=== PATIENT | male | born 1950 | race Caucasian/White ===

== ENCOUNTER 2023-03-31 10:00 | Inpatient (IN) | payer MEDICARE, MEDICAID ==
[~2023-03-31] VITALS: Ht 190.5 cm; Wt 100.2 kg
[~2023-03-31 10:00] MED LIST: ASPI-920 PO; ATOR40TA PO; LEVO750T68 PO; METO50TA17 PO; METR-159 PO; NICO-731 TOP
[2023-03-31 11:21] LABS: EOSINOPHILS # (AUTO) 0.1 X10'3 (0-0.9); MONOCYTES # (AUTO) 0.5 X10'3 (0-0.9); RED CELL DISTRIBUTION WIDTH 15.7 % (11.5-14.5)
[2023-03-31 11:23] LABS: BASOPHILS # (AUTO) 0.1 X10'3 (0-0.2); BASOPHILS % (AUTO) 1.4 % (0-1); EOSINOPHILS % (AUTO) 1.2 % (0-6); HEMATOCRIT 50.9 % (42.0-52.0); HEMOGLOBIN 17.1 g/dl (14.0-17.9); LYMPHOCYTES # (AUTO) 1.5 X10'3 (1.1-4.8); LYMPHOCYTES % (AUTO) 19.6 % (21-51); MEAN CORPUSCULAR HEMOGLOBIN 30.7 PG (27.0-31.0); MEAN CORPUSCULAR HGB CONC 33.6 g/dL (33.0-36.5); MEAN CORPUSCULAR VOLUME 91.5 FL (78-98); MEAN PLATELET VOLUME 9.4 FL (7.4-10.4); MONOCYTES % (AUTO) 6.9 % (2-12); NEUTROPHILS # (AUTO) 5.4 X10'3 (1.8-7.7); NEUTROPHILS % (AUTO) 70.9 % (42-75); PLATELET COUNT 154 X10'3 (140-440); RED BLOOD COUNT 5.56 X10'6 (4.70-6.10); WHITE BLOOD COUNT 7.7 X10'3 (4.5-11.0)
[2023-03-31 11:25] LABS: ALANINE AMINOTRANSFERASE 14 U/L (12-78); ALBUMIN 3.2 G/DL (3.4-5.0); ALBUMIN/GLOBULIN RATIO 0.9 (1.1-1.5); ALKALINE PHOSPHATASE 109 IU/L (46-116); ANION GAP 11 (8-16); ASPARTATE AMINO TRANSFERASE 16 U/L (10-37); BLOOD UREA NITROGEN 16 MG/DL (7-18); CALCIUM 8.9 MG/DL (8.5-10.1); CHLORIDE 103 MMOL/L (99-107); CREATININE 0.94 MG/DL (0.60-1.10); GLUCOSE 139 MG/DL (70-104); POTASSIUM 3.6 MMOL/L (3.5-5.1); SODIUM 138 MMOL/L (135-145); TOTAL CARBON DIOXIDE 24.4 MMOL/L (24-32); TOTAL PROTEIN 6.6 G/DL (6.4-8.2); eCRCL 82 ML/MIN; eGFR 78 ML/MIN
[2023-03-31] MEDS ORDERED: potassium Cl 20 mEq SR tablet PO STA (11:31)
[2023-03-31 11:32] LABS: PRO BRAIN NATRIURETIC PEPTIDE 387 PG/ML (0-125)
[2023-03-31] MEDS ORDERED: metoprolol tartrate 50mg tablet PO ONE (11:55)
--- NOTE | 2023-03-31 13:10 | NUR ---
PT TROP 114 PER SHADOW RN. SHADOW WILL NOTIFY DR CORDOVA.
[2023-03-31] MEDS ORDERED: metoprolol tartrate 1mg/ml inj IV ONE (13:55)
[2023-03-31] MEDS ORDERED: aspirin 81mg tab.chew PO ONE (14:00)
[2023-03-31] MEDS ORDERED: enoxaparin 100mg/ml syringe SUBCUT ONE (14:05)
[2023-03-31] MEDS ORDERED: heparin 10,000 units/1 ML INJ IV ONE (15:05)
--- NOTE | 2023-03-31 15:05 | NUR ---
DR MONTEIRO AT BEDSIDE. PER DR MONTEIRO RN MAY ORD AND ADMIN HEPARIN DRIP PER PROTOCOL.
[2023-03-31] MEDS ORDERED: magnesium hydroxide 30ml (MOM) UD suspension PO PRN (15:15)
[2023-03-31] MEDS ORDERED: potassium Cl 20 mEq SR tablet PO PRN ×2 (15:15)
[2023-03-31] MEDS ORDERED: potassium Cl 40MEQ/1/2NS 520ml 520 ML IV PRN (15:15)
[2023-03-31] MEDS ORDERED: magnesium 4gm in 100ml NS 100 ML IV PRN (15:15)
[2023-03-31] MEDS ORDERED: ondansetron/PF 4mg/2ml inj IV PRN (15:15)
[2023-03-31] MEDS ORDERED: mag hydrox/Alum hydrox/simeth 30ml oral suspension PO PRN (15:15)
[2023-03-31] MEDS ORDERED: acetaminophen 325mg tablet PO PRN ×2 (15:15)
[2023-03-31] MEDS ORDERED: morphine 2 MG/ML inj. syringe IV PRN (15:15)
[2023-03-31] MEDS ORDERED: magnesium Cl slow-release 64mg tablet PO PRN (15:15)
[2023-03-31] MEDS ORDERED: HYDROcodone/acetaminophen 10/325mg tab PO PRN (15:15)
[2023-03-31] MEDS ORDERED: magnesium 2GM in 50ml NS 50 ML IV PRN (15:15)
[2023-03-31] MEDS ORDERED: heparin 10,000 units/1 ML INJ IV PRN (15:41)
[2023-03-31 15:45] LABS: BASOPHILS # (AUTO) 0.1 X10'3 (0-0.2); EOSINOPHILS # (AUTO) 0.1 X10'3 (0-0.9); EOSINOPHILS % (AUTO) 1.6 % (0-6); HEMATOCRIT 52.2 % (42.0-52.0); HEMOGLOBIN 17.4 g/dl (14.0-17.9); LYMPHOCYTES # (AUTO) 1.8 X10'3 (1.1-4.8); LYMPHOCYTES % (AUTO) 28.4 % (21-51); MEAN CORPUSCULAR HEMOGLOBIN 30.5 PG (27.0-31.0); MEAN CORPUSCULAR HGB CONC 33.4 g/dL (33.0-36.5); MEAN CORPUSCULAR VOLUME 91.5 FL (78-98); MEAN PLATELET VOLUME 9.4 FL (7.4-10.4); MONOCYTES # (AUTO) 0.5 X10'3 (0-0.9); MONOCYTES % (AUTO) 7.8 % (2-12); NEUTROPHILS % (AUTO) 61.2 % (42-75); PLATELET COUNT 164 X10'3 (140-440); RED CELL DISTRIBUTION WIDTH 15.7 % (11.5-14.5); WHITE BLOOD COUNT 6.5 X10'3 (4.5-11.0)
[2023-03-31 15:57] LABS: APTT 30 SECONDS (22-32); INR 1.1 INR
[2023-03-31 16:32] LABS: BILIRUBIN,URINE SMALL (Neg); CLARITY,URINE SLIGHTLY CLOUDY (Clear); COLOR,URINE YELLOW (Yellow); GLUCOSE, URINE NEGATIVE (Neg); KETONES,URINE 40 mg/dl (Neg); LEUKOCYTE ESTERASE ,URINE NEGATIVE (Neg); NITRITES, URINE NEGATIVE (Neg); OCCULT BLOOD,URINE NEGATIVE (Neg); PROTEIN,URINE 100 mg/dl (Neg)
[2023-03-31 16:37] LABS: UA COLLECTION TYPE CLN CATCH MIDSTREAM
[2023-03-31 16:38] LABS: BACTERIA,URINE NONE SEEN /HPF (Neg); HYALINE CASTS 0-3 /LPF (NEGATIVE); MUCUS STRANDS FEW /LPF (Neg); RBC,URINE 0-2 /HPF (0-2); SQUAMOUS EPITHELIAL CELL,UR NONE SEEN /LPF (FEW); WBC,URINE 0-4 /HPF (0-4)
[2023-03-31] MEDS: heparin 25,000 UNIT/250ml bag 250 ML IV PRN (16:40)
--- NOTE | 2023-03-31 16:43 | NUR ---
PER DR MONTEIRO ORD STAT EKG AT THIS TIME. EKG ORD AND BEING PERFORMED AT BEDSIDE NOW.
--- NOTE | 2023-03-31 16:47 | NUR ---
PTT ORD TO BE COLLECTED AT 2240, 6 HRS POST START OF HEPARIN DRIP.
--- NOTE | 2023-03-31 17:10 | NUR ---
RN NOTIFIED DR REYES THAT REPEAT EKG WAS DONE AND SHE WILL SEND RESIDENT TO COME SEE IT.
--- NOTE | 2023-03-31 17:33 | NUR ---
PT STATES THAT HE TAKES A BLOOD THINNER SOMETIMES BUT CANNOT REMEMBER THE NAME AND USES [facility]. [facility] IS CLOSED SUNDAYS. RN SPOKE WITH DR MONTEIRO AND NOTIFIED HER THAT PT CAN NOT REMEMBER AND COPY OF REPEAT EKG WILL BE IN PT RM.
--- NOTE | 2023-03-31 19:05 | NUR ---
PER ALOK COLEMANN PT TROP 157. THIS RN PAGED DR DON- ED 1-TROP INCREASED TO 157 UP FROM 134
--- NOTE | 2023-03-31 19:32 | NUR ---
[facility] REPORT CALLED. KIMBERLEY CONDE NOTIFIED AND WILL HAVE PT TRANSFERRED TO THE FLOOR.
[2023-03-31] MEDS: K and/or MAG REPLACEMENT MC SCH (20:00)
[2023-03-31 20:07] VITALS: BP 101/68; PULSE 107; RESP 15; TEMP 96.9; O2SAT 97
[2023-03-31] MEDS: docusate sod 100mg capsule PO SCH (20:23)
[2023-03-31] MEDS: atorvastatin 20mg tablet PO SCH (20:23)
[2023-03-31] MEDS: metoprolol tartrate 50mg tablet PO SCH (20:24)
[2023-03-31 22:00] VITALS: BP 93/64; PULSE 105; RESP 14; TEMP 97.8; O2SAT 96
[2023-03-31 23:52] LABS: APTT 40 SECONDS (22-32)
[2023-04-01] VITALS (7 sets, daily range): BP systolic 112–145; BP diastolic 76–96; PULSE 102–107; RESP 14–22; TEMP 97.3–98.6; O2SAT 91–98
--- NOTE | 2023-04-01 06:45 | NUR ---
Skin assessment was not done cos pt refused.Said He wants to sleep.
--- NOTE | 2023-04-01 06:47 | NUR ---
Problems reprioritized. Patient report given, questions answered & plan of care reviewed with Caty
[2023-04-01 07:44] LABS: BASOPHILS # (AUTO) 0.1 X10'3 (0-0.2); BASOPHILS % (AUTO) 1.2 % (0-1); EOSINOPHILS # (AUTO) 0.2 X10'3 (0-0.9); EOSINOPHILS % (AUTO) 2.5 % (0-6); HEMATOCRIT 49.8 % (42.0-52.0); HEMOGLOBIN 16.7 g/dl (14.0-17.9); LYMPHOCYTES # (AUTO) 2.3 X10'3 (1.1-4.8); LYMPHOCYTES % (AUTO) 35.3 % (21-51); MEAN CORPUSCULAR HEMOGLOBIN 30.7 PG (27.0-31.0); MEAN CORPUSCULAR HGB CONC 33.4 g/dL (33.0-36.5); MEAN CORPUSCULAR VOLUME 91.8 FL (78-98); MEAN PLATELET VOLUME 10.1 FL (7.4-10.4); MONOCYTES # (AUTO) 0.6 X10'3 (0-0.9); MONOCYTES % (AUTO) 8.4 % (2-12); NEUTROPHILS # (AUTO) 3.5 X10'3 (1.8-7.7); NEUTROPHILS % (AUTO) 52.6 % (42-75); PLATELET COUNT 143 X10'3 (140-440); RED BLOOD COUNT 5.42 X10'6 (4.70-6.10); RED CELL DISTRIBUTION WIDTH 15.5 % (11.5-14.5); WHITE BLOOD COUNT 6.7 X10'3 (4.5-11.0)
[2023-04-01] MEDS: docusate sod 100mg capsule PO SCH ×2 (07:57→20:00)
[2023-04-01] MEDS: K and/or MAG REPLACEMENT MC SCH ×2 (07:57→20:00)
[2023-04-01] MEDS: metoprolol tartrate 50mg tablet PO SCH ×2 (07:57→20:16)
[2023-04-01] MEDS ORDERED: aspirin 81mg, enteric-coated 1 TAB TABLET.DR PO SCH (08:00)
[2023-04-01 08:08] LABS: ALBUMIN 3.1 G/DL (3.4-5.0); ANION GAP 7 (8-16); BLOOD UREA NITROGEN 18 MG/DL (7-18); BUN/CREATININE RATIO 21.2 (10.0-20.0); CALCIUM 9.3 MG/DL (8.5-10.1); CHLORIDE 103 MMOL/L (99-107); CHOL/HDL RATIO 4.9 (0.00-4.99); CHOLESTEROL 163 MG/DL (0-200); CREATININE 0.85 MG/DL (0.60-1.10); GLUCOSE 123 MG/DL (70-104); HDL CHOLESTEROL 33 MG/DL (35-60); LDL CHOLESTEROL 116 MG/DL (50-100); MAGNESIUM 1.9 MG/DL (1.5-2.4); PHOSPHORUS 3.6 MG/DL (2.3-4.5); POTASSIUM 4.4 MMOL/L (3.5-5.1); SODIUM 137 MMOL/L (135-145); TOTAL CARBON DIOXIDE 27.3 MMOL/L (24-32); TRIGLYCERIDES 69 MG/DL (20-135); eCRCL 91 ML/MIN; eGFR 88 ML/MIN
--- NOTE | 2023-04-01 08:39 | NUR ---
Critical value trop called to Resident.
--- NOTE | 2023-04-01 09:02 | NUR ---
resident rounded on pt.
[2023-04-01 09:15] LABS: INR 1.1 INR; PROTHROMBIN TIME 11.9 SECONDS (9.0-12.0)
--- NOTE | 2023-04-01 09:30 | NUR ---
The following was taken from the patients H&P: This 73 yr. old male came to the ER with concerns of sudden on-set rapid HR. He has a medical history of cardiovascular issues, right foot cellulitis and DM. he is a daily tobacco user. He occasionally uses alcohol and consistently uses marijuana. He lives at home with roommates. CXR was positive for mild cardiomegaly. His most recent labs show a WBC of 6.7, HGB 16.7, BUN 18, BG 110 and an albumin of 3.1. He was admitted for medical management of non-STEMI per progress notes. Wound care in for evaluation of skin breakdown to his extremities per nursing consult request. The pt. was found sitting on the side of the bed in no apparent acute distress. Greeted and explained the intent. He appears to be A/O x4, agreeable to care. The pt. presents with scattered scabbing and scarring to all of his extremities. He says that he has been dealing with itching for years and typically uses triple ABX ointment on each individual wound as it occurs from his scratching. Of note there are no wounds or scars to his back, buttock or posterior upper thighs. He says that is because he believes his itching is part of mental illness and he cant see or reach those areas. He was offered a cream for which he accepted. His feet are very dry with brittle and discolored nails as seen with fungal infection. The remainder of his skin assessment was unremarkable. He was left as he was found on the edge of his bed. The pt. got up and walked through the unit after this nurse left the room. [facility] will not follow this patient as he has no open wounds and has displayed good mobility. Report was given to the primary nurse. 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 Gideon Garcia RN, WOC.
--- NOTE | 2023-04-01 10:15 | NUR ---
RESIDENT MADE AWARE OF A1C AND SKIN SCABS WHILE ROUNDING- SEE NEW ORDERS PLEASE. RESIDENT CALLED NOW ABOUT PATIENTS LEFT EYE- SCLERA PINK. PT STATES HE "CUT HIS EYE" ON SOMETHING "AWHILE AGO".
[2023-04-01] MEDS ORDERED: glucagon, human recombinant 1mg kit SUBCUT PRN (10:40)
[2023-04-01] MEDS ORDERED: DEXTROSE 15 GM of carb/4 tabs (each vial/BOTTLE has 4 tablets) PO PRN ×2 (10:40)
[2023-04-01] MEDS ORDERED: dextrose 50%-water 50ml dispensing syringe IV PRN ×2 (10:40)
[2023-04-01] MEDS ORDERED: insulin Lispro (HumaLOG) vial - multi-dose SQ SCH (10:40)
[2023-04-01] MEDS ORDERED: MESSAGE TO PHARMACY PO ONE (10:40)
--- NOTE | 2023-04-01 12:36 | NUR ---
DM Consult: Pt admit DX NSTEMI, HTN, and new onset DM A1C 7.4% hx pre-diabetes last A1C 5.3% 10/06/22 per EMR. Pt PO 100% first heart healthy meal this AM and Glu 110-141mg/dl following without receiving Glu coverage. Given stature carb restriction not indicated since would not meet needs. Pt seen by RD at bedside for written/verbal DM diet ed w/ RD contact information provided. RD encouraged pt to contact dietitian's office if nutrition questions/concerns. LBM 03/31 refused routine colace this AM per EMR. Will monitor for further PO trends and nutrition intervention needs this admit. Rec: 1. continue heart healthy diet per MD; carb restriction NOT warranted given pt stature and estimated needs 2. monitor PO trends; consider additional proteins w/ meals for satiety if current PO persists to better meet estimated needs 3. routine bowel care 4. weekly wt Addendum: 04/01/23 at [address] Amended: Links added.
--- NOTE | 2023-04-01 12:40 | NUR ---
DNR band placed on pt.
[2023-04-01] MEDS ORDERED: PERFLUTREN PROTEIN-A MICROSPHR (Optison) 0.22 MG/ML 3ML VIAL IV ONE (13:05)
[2023-04-01] MEDS ORDERED: aminophylline 250mg/10ml inj. IV PRN (13:05)
[2023-04-01] MEDS ORDERED: nitroGLYCERIN 0.4mg SUBLingual tab SL PRN (13:05)
[2023-04-01] MEDS ORDERED: regadenoson 0.4mg/5ml syringe IV PRN (13:05)
[2023-04-01] MEDS ORDERED: metoprolol tartrate 1mg/ml inj IV PRN (13:05)
--- NOTE | 2023-04-01 13:39 | NUR ---
DM Consult: Addressed; see prior RD note. Addendum: 04/01/23 at [address] Amended: Links added.
[2023-04-01] MEDS: heparin 25,000 UNIT/250ml bag 250 ML IV PRN (14:49)
[2023-04-01 16:26] LABS: URINE AMPHETAMINE SCREEN NEGATIVE (Neg); URINE BARBITUATE SCREEN NEGATIVE (Neg); URINE BENZODIAZEPINES SCREEN NEGATIVE (Neg); URINE CANNABINOID SCREEN POSITIVE (Neg); URINE COCAINE SCREEN NEGATIVE (Neg); URINE METHADONE SCREEN NEGATIVE (Neg); URINE OPIATE SCREEN NEGATIVE (Neg); URINE PHENCYCLIDINE SCREEN NEGATIVE (Neg)
--- NOTE | 2023-04-01 18:43 | NUR ---
Gave report to Yoselin CONDE.
[2023-04-01] MEDS: mupirocin 2% ointment 22GM TP SCH ×2 (20:00→20:17)
[2023-04-01] MEDS: atorvastatin 20mg tablet PO SCH (20:15)
[2023-04-01] MEDS ORDERED: insulin glargine (Lantus) pen - multi-dose SQ SCH (21:00)
[2023-04-02 01:14] VITALS: BP 140/90; PULSE 105; RESP 18; TEMP 97.4; O2SAT 97
[2023-04-02 06:00] VITALS: BP 123/98; PULSE 79; RESP 17; TEMP 98.3; O2SAT 97
--- NOTE | 2023-04-02 06:51 | NUR ---
Problems reprioritized. Patient report given, questions answered & plan of care reviewed with AMAYA Phoenix. Pt stable at shift change.
[2023-04-02 07:25] LABS: BASOPHILS # (AUTO) 0.1 X10'3 (0-0.2); EOSINOPHILS # (AUTO) 0.2 X10'3 (0-0.9); EOSINOPHILS % (AUTO) 2.3 % (0-6); HEMATOCRIT 51.5 % (42.0-52.0); LYMPHOCYTES % (AUTO) 29.7 % (21-51); MEAN CORPUSCULAR HEMOGLOBIN 30.3 PG (27.0-31.0); MEAN CORPUSCULAR VOLUME 91.8 FL (78-98); MEAN PLATELET VOLUME 9.7 FL (7.4-10.4); MONOCYTES # (AUTO) 0.5 X10'3 (0-0.9); MONOCYTES % (AUTO) 7.6 % (2-12); NEUTROPHILS % (AUTO) 59.4 % (42-75); PLATELET COUNT 160 X10'3 (140-440); RED BLOOD COUNT 5.61 X10'6 (4.70-6.10); RED CELL DISTRIBUTION WIDTH 15.5 % (11.5-14.5); WHITE BLOOD COUNT 6.7 X10'3 (4.5-11.0)
[2023-04-02 07:39] LABS: APTT 29 SECONDS (22-32); INR 1.1 INR; PROTHROMBIN TIME 11.3 SECONDS (9.0-12.0)
[2023-04-02 07:42] LABS: ALBUMIN 3.4 G/DL (3.4-5.0); ANION GAP 1 (8-16); BLOOD UREA NITROGEN 15 MG/DL (7-18); CALCIUM 9.2 MG/DL (8.5-10.1); CHLORIDE 103 MMOL/L (99-107); CREATININE 0.88 MG/DL (0.60-1.10); GLUCOSE 135 MG/DL (70-104); MAGNESIUM 1.9 MG/DL (1.5-2.4); PHOSPHORUS 4.1 MG/DL (2.3-4.5); SODIUM 130 MMOL/L (135-145); TOTAL CARBON DIOXIDE 25.6 MMOL/L (24-32); eCRCL 88 ML/MIN; eGFR 85 ML/MIN
[2023-04-02 08:00] VITALS: RESP 17; O2SAT 96
--- NOTE | 2023-04-02 10:30 | NUR ---
Patient left AMA. MD aware. risks given and explained to patient. patient very upset and unable to deescalate the situation when even told he would be discharged in just a couple minutes.
== END 2023-04-02 09:45 | disposition left against medical advice (07) | DRG 281 ==
LOC: ER 10:01 → ED HOLD 15:18 → PCU 3S 19:50
PROVIDERS: ADMIT Internal Medicine; ATTEND Internal Medicine
DX: I48.92 Unspecified atrial flutter (principal); I21.A1 Myocardial infarction type 2; E87.1 Hypo-osmolality and hyponatremia; E11.9 Type 2 diabetes mellitus without complications; E78.5 Hyperlipidemia, unspecified; I48.0 Paroxysmal atrial fibrillation; Z87.891 Personal history of nicotine dependence; Z79.899 Other long term (current) drug therapy
CPT/HCPCS: 36415; 71045; 80048; 80053; 80061; 80305; 81001; 82948; 83036; 83735; 83880; 84100; 84484; 85025; 85610; 85730; 87081; 93306; 99285; A6250; G0378; J1644; J1650; J1815; J3490

== ENCOUNTER 2023-06-23 14:46 | Emergency (ER) | payer MEDICARE, MEDICAID ==
[~2023-06-23] VITALS: Ht 190.5 cm; Wt 100.0 kg
[~2023-06-23 14:46] MED LIST changes: -LEVO750T68 PO; -METR-159 PO; -NICO-731 TOP
[2023-06-23 15:44] VITALS: BP 133/92; PULSE 133; TEMP 98.3; O2SAT 96
[2023-06-23 16:34] LABS: BILIRUBIN,URINE SMALL (Neg); CLARITY,URINE SLIGHTLY CLOUDY (Clear); COLOR,URINE YELLOW (Yellow); GLUCOSE, URINE NEGATIVE (Neg); KETONES,URINE 15 mg/dl (Neg); LEUKOCYTE ESTERASE ,URINE NEGATIVE (Neg); NITRITES, URINE NEGATIVE (Neg); OCCULT BLOOD,URINE TRACE-INTACT (Neg); PH,URINE 6.5 (4.8-8.0); PROTEIN,URINE 100 mg/dl (Neg)
[2023-06-23 16:38] LABS: UA COLLECTION TYPE CLN CATCH MIDSTREAM
[2023-06-23 16:39] LABS: ALANINE AMINOTRANSFERASE 20 U/L (12-78); ALBUMIN 3.2 G/DL (3.4-5.0); ALBUMIN/GLOBULIN RATIO 0.7 (1.1-1.5); ALKALINE PHOSPHATASE 108 IU/L (46-116); ANION GAP 5 (8-16); ASPARTATE AMINO TRANSFERASE 20 U/L (10-37); BILIRUBIN,TOTAL 1.3 MG/DL (0.1-1.0); BLOOD UREA NITROGEN 13 MG/DL (7-18); BUN/CREATININE RATIO 15.7 (10.0-20.0); CALCIUM 9.4 MG/DL (8.5-10.1); CHLORIDE 101 MMOL/L (99-107); CREATININE 0.83 MG/DL (0.60-1.10); GLUCOSE 125 MG/DL (70-104); POTASSIUM 3.5 MMOL/L (3.5-5.1); SODIUM 138 MMOL/L (135-145); TOTAL CARBON DIOXIDE 32.3 MMOL/L (24-32); TOTAL PROTEIN 7.6 G/DL (6.4-8.2); eCRCL 93 ML/MIN; eGFR > 90 ML/MIN
[2023-06-23 16:40] LABS: BASOPHILS # (AUTO) 0.1 X10'3 (0-0.2); BASOPHILS % (AUTO) 0.6 % (0-1); EOSINOPHILS # (AUTO) 0.1 X10'3 (0-0.9); HEMATOCRIT 46.3 % (42.0-52.0); HEMOGLOBIN 15.5 g/dl (14.0-17.9); LYMPHOCYTES # (AUTO) 1.6 X10'3 (1.1-4.8); LYMPHOCYTES % (AUTO) 16.8 % (21-51); MEAN CORPUSCULAR HEMOGLOBIN 30.6 PG (27.0-31.0); MEAN CORPUSCULAR HGB CONC 33.5 g/dL (33.0-36.5); MEAN CORPUSCULAR VOLUME 91.3 FL (78-98); MEAN PLATELET VOLUME 9.2 FL (7.4-10.4); MONOCYTES # (AUTO) 0.8 X10'3 (0-0.9); MONOCYTES % (AUTO) 8.2 % (2-12); NEUTROPHILS # (AUTO) 7.1 X10'3 (1.8-7.7); NEUTROPHILS % (AUTO) 73.4 % (42-75); PLATELET COUNT 197 X10'3 (140-440); RED BLOOD COUNT 5.07 X10'6 (4.70-6.10); WHITE BLOOD COUNT 9.7 X10'3 (4.5-11.0)
[2023-06-23 16:41] LABS: MUCUS STRANDS MANY /LPF (Neg); SQUAMOUS EPITHELIAL CELL,UR FEW /LPF (FEW)
[2023-06-23 16:46] LABS: BACTERIA,URINE FEW /HPF (Neg); RBC,URINE 0-2 /HPF (0-2); WBC,URINE 0-4 /HPF (0-4)
[2023-06-23 16:50] LABS: THYROID STIMULATING HORMONE 1.39 ulU/ml (0.34-4.50)
[2023-06-23 17:19] VITALS: RESP 18
[2023-06-23 17:50] LABS: URINE AMPHETAMINE SCREEN NEGATIVE (Neg); URINE BARBITUATE SCREEN NEGATIVE (Neg); URINE BENZODIAZEPINES SCREEN NEGATIVE (Neg); URINE CANNABINOID SCREEN POSITIVE (Neg); URINE COCAINE SCREEN NEGATIVE (Neg); URINE METHADONE SCREEN NEGATIVE (Neg); URINE OPIATE SCREEN NEGATIVE (Neg); URINE PHENCYCLIDINE SCREEN NEGATIVE (Neg)
== END 2023-06-23 17:56 | disposition left against medical advice (07) ==
LOC: ER 14:46
DX: R45.851 Suicidal ideations (principal); Z20.822 Contact with and (suspected) exposure to COVID-19; E11.9 Type 2 diabetes mellitus without complications; F12.90 Cannabis use, unspecified, uncomplicated; Z79.82 Long term (current) use of aspirin; Z79.899 Other long term (current) drug therapy
CPT/HCPCS: 36415; 80053; 80305; 81001; 84443; 85025; 87811; 99283